=== PATIENT | female | born 1960 | race African-American/Black ===

== ENCOUNTER 2017-10-14 13:29 | Emergency (ER) | payer MEDICAID, OTHER ==
[~2017-10-14] VITALS: Ht 162.6 cm; Wt 81.6 kg
[2017-10-14 14:22] LABS: *BILIRUBIN,URIN NEGATIVE (NEGATIVE); *BLOOD, URINE NEGATIVE (NEGATIVE); *CLARITY,URINE SLIGHTLY CLOUDY (CLEAR); *COLOR,URINE YELLOW (YELLOW); *KETONES,URINE NEGATIVE (NEGATIVE); *PROTEIN,URINE NEGATIVE (NEGATIVE); *UROBILINOGEN,URINE 0.2 E.U./dl (NORMAL); LEUKOCYTE ESTERASE ,URINE NEGATIVE (NEGATIVE); NITRITE, URINE NEGATIVE (NEGATIVE); PH,URINE 5.5 (5.0-8.0); UGLUCOSE NEGATIVE (NEGATIVE)
[2017-10-14 14:29] LABS: BACTERIA,URINE MODERATE /HPF (NONE SEEN); RBC,URINE 0-3 /HPF (0-3); SQUAMOUS EPITHELIAL CELL,UR MODERATE /HPF (NONE SEEN); WBC,URINE 0-3 /HPF (0-3)
[2017-10-14] MEDS ORDERED: SULFAMETH/TRIMETH 800/160 MG TABLET ONE (14:40)
--- NOTE | 2017-10-14 14:43 | NUR ---
Patient discharged to home in stable conditon. Written and verbal after care instructions given. Patient verbalizes understanding of instructions.
[2017-10-14] MEDS ORDERED: SULFAMETH/TRIMETH 800/160 MG TABLET PO ONE (14:45)
== END 2017-10-14 14:45 | disposition home or self-care (01) ==
LOC: ER 13:31
DX: N39.0 Urinary tract infection, site not specified (principal); I10 Essential (primary) hypertension
CPT/HCPCS: A4663

== ENCOUNTER 2017-11-07 10:24 | Emergency (ER) | payer OTHER ==
[~2017-11-07] VITALS: Ht 160 cm; Wt 71.7 kg
[2017-11-07] MEDS ORDERED: ADVIL PO (10:32)
[2017-11-07] MEDS ORDERED: EXCEDRIN PO (10:32)
[2017-11-07 10:41] VITALS: BP 185/101
[2017-11-07] MEDS: AMLODIPINE 5 MG TABLET PO ONE (10:41)
--- NOTE | 2017-11-07 10:44 | NUR ---
Patient discharged to home in stable conditon. Written and verbal after care instructions given. Patient verbalizes understanding of instructions.pt walks in steady gait. pt deneis any dizziness or headache.
[2017-11-07] MEDS ORDERED: AMLODIPINE 5 MG TABLET ONE (10:45)
== END 2017-11-07 10:49 | disposition home or self-care (01) ==
LOC: ER 10:24
DX: I10 Essential (primary) hypertension (principal)
CPT/HCPCS: A4663